=== PATIENT | female | born 1980 | race Caucasian/White ===

== ENCOUNTER 2023-10-07 09:51 | Outpatient (CLI) | payer BC, MEDICARE | END 2023-10-07 09:52 | disposition home or self-care (01) | LOC: CSHWCC 09:51 | PROVIDERS: ATTEND Physician Assistant | DX: S01.00XS Unspecified open wound of scalp, sequela (principal) | CPT/HCPCS: 87070; 87076; 87205; 97597; 99212; G0463 ==

== ENCOUNTER 2023-10-14 09:29 | Outpatient (CLI) | payer BC, MEDICARE | END 2023-10-14 09:30 | disposition home or self-care (01) | LOC: CSHWCC 09:29 | PROVIDERS: ATTEND Preventive Medicine Undersea and Hyperbaric Medicine | DX: S01.00XS Unspecified open wound of scalp, sequela (principal) | CPT/HCPCS: 99214; G0463 ==

== ENCOUNTER 2023-10-22 08:34 | Outpatient (CLI) | payer BC, MEDICARE | END 2023-10-22 08:35 | disposition home or self-care (01) | LOC: CSHWCC 08:34 | PROVIDERS: ATTEND Physician Assistant | DX: S01.00XS Unspecified open wound of scalp, sequela (principal) | CPT/HCPCS: 97597 ==